=== PATIENT | female | born 1975 | race Caucasian/White ===

== ENCOUNTER → 2017-10-14 | Outpatient (CLI) | payer BC ==
[~2017-10-14] MED LIST: ALPR-429 PO; COCO118.2 MC; IBUP100T49 PO; LOR5/325 PO; LORA-802 PO; PRED20TA6 PO
--- NOTE | 2017-10-15 22:11 | RADIOLOGY IMAGING REPORT ---
FACILITY: [facility] PATIENT NAME: BIANKA ESPINOSA : [id number] MR: [id number] V: [id number] EXAM DATE: ORDERING PHYSICIAN: LISSET [employer]ALL TECHNOLOGIST: Debbie Iglesias EXAMINATION:TWO-DIMENSIONAL ECHOCARDIOGRAPH REASON:HEART MURMUR. 2D Measurements (normal values in centimeters) LV endLV endRV endVent.LV PostAorticLeftPercent DiastolicSystolicDiastolicSeptumWallRootAtriumShortening (3.5-5.7)(0.9-2.6)(0.6-1.1)(0.6-1.1)(2.0-3.7)(1.9-4.0)(25-35%) [id number]% STROKE VOLUME: 41 mL ESTIMATED EJECTION FRACTION:63% PARASTERNAL LONG AXIS: Overall left ventricular systolic function appears to be normal and chamber sizes also appear to be normal. Trace of mitral insufficiency is noted. Color examination of the aortic valve was unremarkable. PARASTERNAL SHORT AXIS: Overall left ventricular function again appears to be normal. Color examination of the aortic and pulmonic valves was unremarkable. Color examination of the tricuspid valve revealed a trace of tricuspid insufficiency. Tricuspid regurgitation V-max is measured at 2.12 m/sec. APICAL FOUR AND TWO CHAMBER: Normal left ventricular ejection fraction. Chamber sizes also appear to be normal. Aortic valve area and mitral valve area both measure within normal range at 2.5 and 2.6 cm2 respectively. Left atrial and right atrial volumes were also measured within normal ranges at 15.6 and 21.7 mL/m2. Trace of mitral and tricuspid insufficiency is noted. SUBCOSTAL VIEW: No pericardial effusion was noted. No atrial septal or ventricular septal defects were appreciated. There is a reversal of the E wave and A wave with the Valsalva maneuver suggesting decreased diastolic function. IVC is normal in size. OVERALL IMPRESSION: 1. Normal left ventricular ejection fraction of 63% with a grade 2/4 decrease in diastolic function. 2. There are normal chamber sizes. 3. A trace of mitral and tricuspid insufficiency with estimated right ventricular systolic pressure within normal range at 26 mmHg. No other abnormalities were noted. Dictated by: Anderson Otto M.D. on 10/14/2017 at 20:51 Transcribed by: MARY marte 10/15/2017 at 15:32 Approved by: Anderson Otto M.D. on 10/15/2017 at 22:09 [facility]
== END ==
LOC: RAD 00:32
PROVIDERS: ATTEND Nurse Practitioner Family
DX: I34.0 Nonrheumatic mitral (valve) insufficiency (principal); I07.1 Rheumatic tricuspid insufficiency
CPT/HCPCS: 93306

== ENCOUNTER → 2018-01-07 | Outpatient (REF) | LOC: AUD 08:45 | PROVIDERS: ATTEND Nurse Practitioner Family | DX: Z01.10 Encounter for examination of ears and hearing without abnormal findings (principal) | CPT/HCPCS: 92552 ==

== ENCOUNTER → 2019-01-05 | Outpatient (REF) | LOC: AUD 09:58 | PROVIDERS: ATTEND Nurse Practitioner Family | DX: Z01.12 Encounter for hearing conservation and treatment (principal) | CPT/HCPCS: 92552 ==